=== PATIENT | male | born 1995 | race Caucasian/White ===

== ENCOUNTER 2017-10-03 12:11 | Emergency (ER) | payer SELFPAY ==
--- NOTE | 2017-10-03 13:52 | ED ---
Influenza-Like Illness - HPI Summary HPI Summary: 21 male presents to ED with complaints of fever, nausea, dizziness, and cough that has been ongoing for the past couple of days, worsened this morning upon waking up. Patient states he had a fever of 102F before taking ibuprofen this morning.. Took ~2 hours ago, just [employer]. Has been exposed to sick contacts. Admits to nausea, denied vomiting. No abdominal pain, chest pain, or trouble breathing. No other complaints. No PMHx. - History of Current Complaint Chief Complaint: EDGeneral Time Seen by Provider: 10/03/17 12:28 Hx Obtained From: Patient Onset/Duration: Sudden Onset, Lasting Days, Still Present, Worse Since Severity: Moderate Associated Signs & Symptoms: Fever, T Max - 102, Myalgia, Cough, Sore Throat, Nasal Congestion, Vomiting - Allergy/Home Medications Allergies/Adverse Reactions: Allergies Allergy/AdvReac Type Severity Reaction Status Date / Time No Known Allergies Allergy Verified 10/03/17 12:23 PMH/Surg Hx/FS Hx/Imm Hx Endocrine/Hematology History: Denies: Hx Diabetes Cardiovascular History: Denies: Hx Hypertension Respiratory History: Denies: Hx Asthma - Surgical History Surgery Procedure, Year, and Place: n/a - Immunization History Immunizations Up to Date: Yes Infectious Disease History: No Infectious Disease History: Denies: Traveled Outside the [place] in Last 30 Days - Social History Alcohol Use: None Substance Use Type: Reports: None Smoking Status (MU): Never Smoked Tobacco Review of Systems Positive: Fever, Chills, Fatigue Eyes: Negative Positive: Sore Throat, Nasal Discharge Positive: Palpitations Positive: Cough Positive: Nausea Positive: Myalgia Skin: Negative Positive: Headache All Other Systems Reviewed And Are Negative: Yes Physical Exam Triage Information Reviewed: Yes Vital Signs On Initial Exam: Initial Vitals Temp Pulse Resp BP Pulse Ox 100.4 F 122 17 121/72 98 10/03/17 12:20 10/03/17 12:20 10/03/17 12:20 10/03/17 12:20 10/03/17 12:20 tachycardia and temp noted, given tylenol Vital Signs Reviewed: Yes Appearance: Positive: No Pain Distress, Well-Nourished, Ill-Appearing Skin: Positive: Warm, Skin Color Reflects Adequate Perfusion, Dry, Erythema @ - erythema bilateral cheeks, however patient states this is chronic eczema. Negative: Cyanosis @ Head/Face: Positive: Normal Head/Face Inspection Eyes: Positive: Conjunctiva Clear ENT: Positive: Hearing grossly normal, Pharyngeal erythema, Nasal congestion, TMs normal, Uvula midline - airway patent. Negative: Nasal drainage, Tonsillar swelling, Tonsillar exudate Dental: Negative: Cervical Lymphadenopathy Neck: Positive: Supple, Nontender, No Lymphadenopathy Respiratory/Lung Sounds: Positive: Clear to Auscultation, Breath Sounds Present. Negative: Rales, Rhonchi, Wheezes Cardiovascular: Positive: Normal, RRR, Pulses are Symmetrical in both Upper and Lower Extremities, Tachycardia. Negative: Murmur, Rub Abdomen Description: Positive: Nontender, Soft Bowel Sounds: Positive: Present Musculoskeletal: Positive: Normal, Strength/ROM Intact Neurological: Positive: Normal, Sensory/Motor Intact, Alert, Oriented to Person Place, Time Diagnostics - Vital Signs Vital Signs Temp Pulse Resp BP Pulse Ox 10/03/17 12:20 100.4 F 122 17 121/72 98 - Laboratory Lab Results: Lab Results 10/03/17 Range/Units 12:42 Influenza A (Rapid) Positive H (Negative) Influenza B (Rapid) Negative (Negative) Lab Statement: Any lab studies that have been ordered have been reviewed, and results considered in the medical decision making process. Flu Symptom Course/Dx - Course Course Of Treatment: influenza obtained and positive for A. given zofran and tylenol for nausea and fever while in ED. aware of worsening signs and symptoms. increase fluids and rest. follow up with PCP. no other concerns at this time. decongestants and ibuprofen/tylenol for fever. educated on hygiene and standard precautions to decrease spread. - Diagnoses Differential Diagnosis/HQI/PQRI: Positive: Influenza, Pneumonia, Upper Respiratory Infection Provider Diagnoses: Influenza A Discharge - Discharge Plan Condition: Stable Disposition: HOME Prescriptions: Ondansetron ODT TAB* [Zofran 4 MG Odt TAB*] 4 mg PO Q6H PRN #6 tab.odt PRN Reason: Nausea Oseltamivir CAP* [Tamiflu CAP*] 75 mg PO BID #10 cap Patient Education Materials: Influenza (ED) [facility] - Additional Instructions: Take prescribed medication as directed. Increase fluid intake. Continue ibuprofen/tylenol as needed alternating for discomfort and fever. Any new or worsening symptoms please seek medical attention promptly. Follow up with PCP.
[2017-10-03] MEDS: Acetaminophen TAB* 325 MG PO ONE (14:04)
[2017-10-03] MEDS: Ondansetron ODT TAB* 4 MG PO ONE (14:04)
[2017-10-03 14:16] VITALS: BP 106/62
== END 2017-10-03 14:16 | disposition home or self-care (01) ==
LOC: ED 12:11
DX: J11.1 Influenza due to unidentified influenza virus with other respiratory manifestations (principal)
CPT/HCPCS: 87502; 99282; A9270-GY